=== PATIENT | female | born 1930 | race Caucasian/White ===

== ENCOUNTER → 2017-05-06 | Outpatient (CLI) | payer OTHER ==
[~2017-05-06] MED LIST: ALBU90OI INH; AMIT10 PO; ATEN25 PO; Advil100 MG PO; BENZ100A PO; CALCA500CH PO; CALCIUM 1,0001 EACH PO; CHOL10002 PO; CYAN1000 PO; DRONEDARONE PO; FENO54; FISH OIL 1,0001 EAC1 PO; HYDMOR4 PO; Hair, Skin & N1 EACH PO; IBUP400 PO; LAVAP17G PO; LEVFLO500 PO; LEVSOD100 PO; LEVSOD125; LEVSOD88 PO; LIDO5TP TOP; METO10 PO; Mucinex600 MG PO; NAPR500EC PO; Norco 5-325 Ta1 EACH PO; OMEG1CAP30 PO; Omeprazole20 M1 PO; PROC10 PO; PROM25S PR; PSEU120ER PO; Tasprin325 MG PO; VITAMIN D32000 UNIT PO; VITAMINS; Voltaren100 GM TP; Zofran Odt4 MG SL
[2017-05-06 10:38] LABS: Source, Urine Clean Catch
[2017-05-06 11:58] LABS: Bilirubin, Urine Neg (Neg); Blood, Urine Neg (Neg); Glucose Qualitative, Urine Neg (Neg); Ketones, Urine Neg (Neg); Leukocyte Esterase, Urine Neg (Neg); Nitrite, Urine Neg (Neg); Protein, Urine Neg (Neg); Urobilinogen, Urine NORM (Normal)
[2017-05-06 12:09] LABS: Appearance, Urine Clear (Clear); Color, Urine Yellow (P-Yellow)
== END | disposition home or self-care (01) ==
LOC: LAB 10:35 → LAB FUT 10:35 → EDSTATUS 04-26 15:25 → LAB FUT 04-26 15:25
PROVIDERS: Internal Medicine
DX: N39.0 Urinary tract infection, site not specified (principal)
CPT/HCPCS: 81003

== ENCOUNTER 2017-05-18 04:43 | Emergency (ER) | payer OTHER ==
[~2017-05-18] VITALS: Ht 154.9 cm; Wt 51.3 kg
[~2017-05-18 04:43] MED LIST changes: -Advil100 MG PO; -CHOL10002 PO; -FISH OIL 1,0001 EAC1 PO; -Hair, Skin & N1 EACH PO; -VITAMINS
[2017-05-18] MEDS ORDERED: VITAMINS (05:05)
[2017-07-14] MEDS ORDERED: Norco 5-325 Ta1 EACH PO (17:39)
== END 2017-05-18 07:05 | disposition home or self-care (01) ==
LOC: ER 04:43
DX: J06.9 Acute upper respiratory infection, unspecified (principal); Z88.5 Allergy status to narcotic agent; Z88.8 Allergy status to other drugs, medicaments and biological substances; Z79.82 Long term (current) use of aspirin; Z79.899 Other long term (current) drug therapy; E03.9 Hypothyroidism, unspecified; I48.91 Unspecified atrial fibrillation; Z87.891 Personal history of nicotine dependence
CPT/HCPCS: 71046; 94640; 99283

== ENCOUNTER 2017-05-21 18:38 | Emergency (ER) | payer OTHER ==
[~2017-05-21] VITALS: Ht 152.4 cm; Wt 50.4 kg
[~2017-05-21 18:38] MED LIST changes: +VITAMINS
[2017-05-21] MEDS ORDERED: Hair, Skin & N1 EACH PO (18:56)
[2017-05-21] MEDS ORDERED: CHOL10002 PO (18:56)
[2017-05-21] MEDS ORDERED: FISH OIL 1,0001 EAC1 PO (18:56)
[2017-05-21] MEDS ORDERED: Advil100 MG PO (18:57)
[2017-07-14] MEDS ORDERED: Norco 5-325 Ta1 EACH PO (17:39)
== END 2017-05-21 19:28 | disposition home or self-care (01) ==
LOC: ER 18:38
DX: S00.83XA Contusion of other part of head, initial encounter (principal); E03.9 Hypothyroidism, unspecified; I48.91 Unspecified atrial fibrillation; Z88.5 Allergy status to narcotic agent; Z91.09 Other allergy status, other than to drugs and biological substances; Z79.899 Other long term (current) drug therapy; Z87.891 Personal history of nicotine dependence; W01.0XXA Fall on same level from slipping, tripping and stumbling without subsequent striking against object, initial encounter
CPT/HCPCS: 99282

== ENCOUNTER 2018-04-06 17:01 | Emergency (ER) | payer OTHER ==
[~2018-04-06] VITALS: Ht 152.4 cm; Wt 49.9 kg
[~2018-04-06 17:01] MED LIST changes: +Advil100 MG PO; +CHOL10002 PO; +FISH OIL 1,0001 EAC1 PO; +Hair, Skin & N1 EACH PO
[2018-04-06 18:34] LABS: BASOPHILS ABSOLUTE AUTO 0.06 K/mm3 (0.00-0.23); BASOPHILS PERCENT AUTO 1 % (0-2); EOSINOPHILS PERCENT AUTO 2 % (0-6); Hematocrit 41.5 % (33.0-51.0); Hemoglobin 13.8 g/dL (11.5-16.0); IMMATURE GRAN ABSOLUTE AUTO 0.03 K/mm3 (0.00-0.10); IMMATURE GRAN PERCENT AUTO 0 % (0-1); LYMPHOCYTES ABSOLUTE AUTO 1.48 K/mm3 (0.84-5.20); LYMPHOCYTES PERCENT AUTO 16 % (21-46); MONOCYTES ABSOLUTE AUTO 0.77 K/mm3 (0.16-1.47); MONOCYTES PERCENT AUTO 9 % (4-13); Mean Corpuscular HGB 30.3 pg (26.0-34.0); Mean Corpuscular HGB Conc 33.3 g/dL (31.5-36.5); Mean Corpuscular Volume 91 fL (80-100); Mean Platelet Volume 8.7 fL (9.1-12.4); NEUTROPHILS ABSOLUTE AUTO 6.53 K/mm3 (1.96-9.15); NEUTROPHILS PERCENT AUTO 72 % (41-73); Platelet Count 300 K/mm3 (150-400); RDW Coefficient Variation 13.2 % (11.7-14.2); RDW Standard Deviation 44.7 fL (35.1-46.3); Red Blood Cell Count 4.55 M/mm3 (3.80-5.20); White Blood Cell Count 9.07 K/mm3 (4.00-11.30)
[2018-04-06 18:42] LABS: Source, Urine Clean Catch
[2018-04-06 18:44] LABS: Bilirubin, Urine Neg (Neg); Blood, Urine Neg (Neg); Glucose Qualitative, Urine Neg (Neg); Ketones, Urine Neg (Neg); Leukocyte Esterase, Urine 1+ (Neg); Nitrite, Urine Neg (Neg); Protein, Urine 1+ (Neg); Urobilinogen, Urine NORM (Normal)
[2018-04-06 18:52] LABS: Appearance, Urine Hazy (Clear); Color, Urine Yellow (P-Yellow)
[2018-04-06 18:54] LABS: Bacteria Rare /hpf; Mucus Light (0-Heavy); Red Blood Cells, Urine Rare /hpf (0-2); Squamous Epithelial Cells Few /hpf (Few); White Blood Cells, Urine 0-2 /hpf (0-5)
[2018-04-06 19:19] LABS: Alanine Aminotransfer (ALT/SGP 13 U/L (12-78); Albumin, Blood 3.3 g/dL (3.4-5.0); Albumin/Globulin Ratio 0.9 (0.8-1.8); Alk Phos 101 U/L (50-136); Anion Gap 8 mmol/L (6-16); Aspartate Aminotrans (AST/SGOT 22 U/L (12-37); Bilirubin, Total 0.2 mg/dL (0.1-1.0); Blood Urea Nitrogen 11 mg/dL (8-24); Bun/Creatinine Ratio 17.8 (12.0-20.0); CO2, Blood 25 mmol/L (21-32); Calcium, Blood 8.6 mg/dL (8.5-10.1); Chloride, Blood 109 mmol/L (98-108); Creatinine, Blood 0.62 mg/dL (0.40-1.00); Globulin, Blood 3.7 g/dL (2.2-4.0); Glomerular Filtration Rate >60 (60-); Glucose, Blood 98 mg/dL (70-99); Potassium, Blood 3.7 mmol/L (3.5-5.5); Sodium, Blood 142 mmol/L (136-145)
[2018-04-06] MEDS ORDERED: CYAN500 (19:59)
[2018-04-06] MEDS ORDERED: Cyclobenzaprine5 MG PO (21:36)
[2018-04-06] MEDS ORDERED: IBUP400 PO (21:36)
== END 2018-04-06 22:14 | disposition home or self-care (01) ==
LOC: ER 17:01
PROVIDERS: Emergency Medicine
DX: S22.089A Unspecified fracture of T11-T12 vertebra, initial encounter for closed fracture (principal); M51.34 Other intervertebral disc degeneration, thoracic region; X58.XXXA Exposure to other specified factors, initial encounter; Z88.5 Allergy status to narcotic agent; Z88.8 Allergy status to other drugs, medicaments and biological substances; Z79.899 Other long term (current) drug therapy; E03.9 Hypothyroidism, unspecified; I48.91 Unspecified atrial fibrillation; Z87.891 Personal history of nicotine dependence
CPT/HCPCS: 36415; 72070; 80053; 81001; 83690; 85025; 87077; 87086; 87147; 87186; 93005; 93010; 96374; 99284-25; J1885

== ENCOUNTER 2018-04-13 14:34 | Emergency (ER) | payer OTHER ==
[~2018-04-13] VITALS: Ht 152.4 cm; Wt 49.9 kg
[~2018-04-13 14:34] MED LIST changes: +CYAN500; +Cyclobenzaprine5 MG PO
[2018-04-13] MEDS ORDERED: GABA100 PO (14:53)
[2018-04-13] MEDS ORDERED: AMPI500 PO (15:42)
== END 2018-04-13 15:52 | disposition home or self-care (01) ==
LOC: ER 14:34
DX: N39.0 Urinary tract infection, site not specified (principal); R11.0 Nausea; T36.1X5A Adverse effect of cephalosporins and other beta-lactam antibiotics, initial encounter; E03.9 Hypothyroidism, unspecified; I48.91 Unspecified atrial fibrillation; Z87.891 Personal history of nicotine dependence; Z88.5 Allergy status to narcotic agent; Z79.899 Other long term (current) drug therapy
CPT/HCPCS: 99281-25

== ENCOUNTER → 2018-10-04 | Outpatient (CLI) | payer OTHER ==
[~2018-10-04] MED LIST changes: +AMPI500 PO; +Aspirin325 MG PO; +GABA100 PO; +HYDR1TAB94 PO; +KRILL OIL500 MG PO; -LEVSOD88 PO; +MIRALAX17 GM PO; +MIRT15 PO; +Synthroid88 MCG PO; +THERA1 EACH PO
== END | disposition home or self-care (01) ==
LOC: LAB 10:29 → LAB SHORT 10:29 → LAB FUT 10-03 14:35 → EDSTATUS 10-03 14:35
DX: R19.7 Diarrhea, unspecified (principal)
CPT/HCPCS: 87493

== ENCOUNTER 2018-10-12 05:06 | Emergency (ER) | payer OTHER ==
[~2018-10-12] VITALS: Ht 152.4 cm; Wt 47.6 kg
[~2018-10-12 05:06] MED LIST changes: -Aspirin325 MG PO; -HYDR1TAB94 PO; -KRILL OIL500 MG PO; -MIRALAX17 GM PO; -MIRT15 PO; -THERA1 EACH PO
[2018-10-12] MEDS ORDERED: KRILL OIL500 MG PO (05:54)
[2018-10-12 06:21] LABS: BASOPHILS ABSOLUTE AUTO 0.06 K/mm3 (0.00-0.23); BASOPHILS PERCENT AUTO 1 % (0-2); EOSINOPHILS ABSOLUTE AUTO 0.36 K/mm3 (0.00-0.68); EOSINOPHILS PERCENT AUTO 5 % (0-6); Hematocrit 40.3 % (33.0-51.0); Hemoglobin 13.1 g/dL (11.5-16.0); IMMATURE GRAN ABSOLUTE AUTO 0.03 K/mm3 (0.00-0.10); IMMATURE GRAN PERCENT AUTO 0 % (0-1); LYMPHOCYTES ABSOLUTE AUTO 1.24 K/mm3 (0.84-5.20); LYMPHOCYTES PERCENT AUTO 16 % (21-46); MONOCYTES ABSOLUTE AUTO 0.68 K/mm3 (0.16-1.47); MONOCYTES PERCENT AUTO 9 % (4-13); Mean Corpuscular HGB 29.7 pg (26.0-34.0); Mean Corpuscular HGB Conc 32.5 g/dL (31.5-36.5); Mean Corpuscular Volume 91 fL (80-100); Mean Platelet Volume 8.8 fL (9.1-12.4); NEUTROPHILS ABSOLUTE AUTO 5.26 K/mm3 (1.96-9.15); NEUTROPHILS PERCENT AUTO 69 % (41-73); Platelet Count 316 K/mm3 (150-400); RDW Coefficient Variation 13.2 % (11.7-14.2); RDW Standard Deviation 44.7 fL (35.1-46.3); Red Blood Cell Count 4.41 M/mm3 (3.80-5.20); White Blood Cell Count 7.63 K/mm3 (4.00-11.30)
[2018-10-12 06:38] LABS: Alanine Aminotransfer (ALT/SGP 12 U/L (12-78); Albumin, Blood 3.2 g/dL (3.4-5.0); Albumin/Globulin Ratio 0.9 (0.8-1.8); Alk Phos 107 U/L (50-136); Anion Gap 5 mmol/L (6-16); Aspartate Aminotrans (AST/SGOT 19 U/L (12-37); Bilirubin, Total 0.4 mg/dL (0.1-1.0); Blood Urea Nitrogen 13 mg/dL (8-24); CO2, Blood 28 mmol/L (21-32); Calcium, Blood 8.8 mg/dL (8.5-10.1); Chloride, Blood 110 mmol/L (98-108); Creatinine, Blood 0.69 mg/dL (0.40-1.00); Globulin, Blood 3.5 g/dL (2.2-4.0); Glomerular Filtration Rate >60 (60-); Glucose, Blood 90 mg/dL (70-99); Potassium, Blood 3.9 mmol/L (3.5-5.5); Sodium, Blood 143 mmol/L (136-145); Total Protein, Blood 6.7 g/dL (6.4-8.2)
== END 2018-10-12 09:02 | disposition home or self-care (01) ==
LOC: ER 05:06
PROVIDERS: Emergency Medicine
DX: R13.10 Dysphagia, unspecified (principal); E03.9 Hypothyroidism, unspecified; I48.91 Unspecified atrial fibrillation; Z87.891 Personal history of nicotine dependence
CPT/HCPCS: 71045; 80053; 83880; 84484; 85025; 93005; 93010; 99283-25

== ENCOUNTER 2018-11-19 19:44 | Observation (INO) | payer OTHER ==
[~2018-11-19] VITALS: Ht 165.1 cm; Wt 50.0 kg
[~2018-11-19 19:44] MED LIST changes: +KRILL OIL500 MG PO
[2018-11-19 22:36] LABS: BASOPHILS ABSOLUTE AUTO 0.04 K/mm3 (0.00-0.23); BASOPHILS PERCENT AUTO 0 % (0-2); EOSINOPHILS ABSOLUTE AUTO 0.12 K/mm3 (0.00-0.68); EOSINOPHILS PERCENT AUTO 1 % (0-6); Hemoglobin 12.7 g/dL (11.5-16.0); IMMATURE GRAN ABSOLUTE AUTO 0.03 K/mm3 (0.00-0.10); IMMATURE GRAN PERCENT AUTO 0 % (0-1); LYMPHOCYTES ABSOLUTE AUTO 1.33 K/mm3 (0.84-5.20); LYMPHOCYTES PERCENT AUTO 11 % (21-46); MONOCYTES PERCENT AUTO 8 % (4-13); Mean Corpuscular HGB 29.4 pg (26.0-34.0); Mean Corpuscular HGB Conc 32.6 g/dL (31.5-36.5); Mean Corpuscular Volume 90 fL (80-100); Mean Platelet Volume 9.1 fL (9.1-12.4); NEUTROPHILS ABSOLUTE AUTO 9.72 K/mm3 (1.96-9.15); NEUTROPHILS PERCENT AUTO 79 % (41-73); Platelet Count 234 K/mm3 (150-400); RDW Coefficient Variation 13.9 % (11.7-14.2); RDW Standard Deviation 46.3 fL (35.1-46.3); Red Blood Cell Count 4.32 M/mm3 (3.80-5.20); White Blood Cell Count 12.24 K/mm3 (4.00-11.30)
[2018-11-19 22:51] LABS: Anion Gap 9 mmol/L (6-16); Blood Urea Nitrogen 22 mg/dL (8-24); Bun/Creatinine Ratio 41.7 (12.0-20.0); CO2, Blood 25 mmol/L (21-32); Calcium, Blood 8.5 mg/dL (8.5-10.1); Chloride, Blood 110 mmol/L (98-108); Creatinine, Blood 0.53 mg/dL (0.40-1.00); Glomerular Filtration Rate >60 (60-); Glucose, Blood 106 mg/dL (70-99); Potassium, Blood 3.5 mmol/L (3.5-5.5); Sodium, Blood 144 mmol/L (136-145)
--- NOTE | 2018-11-20 07:38 | NUR ---
SHIFT SUMMARY PT NEW ADMIT THIS AM. AAOX4/HUALAPAI. DISCOMFORT TO RIGHT HIP CONTROLLED WITH 1 PAIN PILL. NO NAUSEA/EMESIS. BRUSING NOTED OVER RIGHT HIP. REPOSITIONS WITH MODERATE ASSISTANCE IN BED. DNR BAND EXPLAINED + PLACED TO LUE. AT BEDSIDE, LOVING + ATTENTIVE. PT ORIENTED TO ROOM + CALL LIGHT USE, BED ALARM ON FOR SAFETY. PT RESTING AT THIS TIME WITH AT BEDSIDE, ASYA. REPORT TO DAY SHIFT RN.
[2018-11-20 08:31] LABS: BASOPHILS ABSOLUTE AUTO 0.03 K/mm3 (0.00-0.23); BASOPHILS PERCENT AUTO 1 % (0-2); EOSINOPHILS ABSOLUTE AUTO 0.21 K/mm3 (0.00-0.68); EOSINOPHILS PERCENT AUTO 4 % (0-6); Hematocrit 35.5 % (33.0-51.0); Hemoglobin 11.8 g/dL (11.5-16.0); IMMATURE GRAN ABSOLUTE AUTO 0.01 K/mm3 (0.00-0.10); IMMATURE GRAN PERCENT AUTO 0 % (0-1); LYMPHOCYTES ABSOLUTE AUTO 1.07 K/mm3 (0.84-5.20); LYMPHOCYTES PERCENT AUTO 18 % (21-46); MONOCYTES ABSOLUTE AUTO 0.72 K/mm3 (0.16-1.47); MONOCYTES PERCENT AUTO 12 % (4-13); Mean Corpuscular HGB 29.8 pg (26.0-34.0); Mean Corpuscular HGB Conc 33.2 g/dL (31.5-36.5); Mean Corpuscular Volume 90 fL (80-100); Mean Platelet Volume 9.2 fL (9.1-12.4); NEUTROPHILS ABSOLUTE AUTO 3.98 K/mm3 (1.96-9.15); NEUTROPHILS PERCENT AUTO 66 % (41-73); Platelet Count 196 K/mm3 (150-400); RDW Standard Deviation 45.6 fL (35.1-46.3); Red Blood Cell Count 3.96 M/mm3 (3.80-5.20); White Blood Cell Count 6.02 K/mm3 (4.00-11.30)
[2018-11-20 08:47] LABS: Albumin, Blood 2.8 g/dL (3.4-5.0); Anion Gap 5 mmol/L (6-16); Blood Urea Nitrogen 14 mg/dL (8-24); Bun/Creatinine Ratio 31.4 (12.0-20.0); CO2, Blood 29 mmol/L (21-32); Chloride, Blood 108 mmol/L (98-108); Creatinine, Blood 0.45 mg/dL (0.40-1.00); Glomerular Filtration Rate >60 (60-); Glucose, Blood 88 mg/dL (70-99); Phosphorus, Blood 2.6 mg/dL (2.5-4.9); Potassium, Blood 3.4 mmol/L (3.5-5.5); Sodium, Blood 142 mmol/L (136-145)
[2018-11-20] MEDS ORDERED: MIRT15 PO (08:50)
[2018-11-20 10:51] LABS: Source, Urine Clean Catch
[2018-11-20 10:57] LABS: Bilirubin, Urine Neg (Neg); Blood, Urine Neg (Neg); Glucose Qualitative, Urine Neg (Neg); Ketones, Urine Neg (Neg); Leukocyte Esterase, Urine 1+ (Neg); Nitrite, Urine Neg (Neg); Protein, Urine Neg (Neg); Specific Gravity, Urine 1.015 (1.003-1.022); Urobilinogen, Urine NORM (Normal)
[2018-11-20 11:05] LABS: Appearance, Urine Clear (Clear); Color, Urine Yellow (P-Yellow)
[2018-11-20 11:08] LABS: Bacteria Rare /hpf; Red Blood Cells, Urine 0-2 /hpf (0-2); Squamous Epithelial Cells Few /hpf (Few)
--- NOTE | 2018-11-20 17:11 | NUR ---
SUMMARY WAS IN TODAY AND INFORMED THE PT THAT SHE WILL NOT BE A SURGICAL CANDIDATE. SHE WILL BE TOE TOUCH WEIGHT BEARING WITH FWW. PHYSICAL THERAPY IS RECOMMENDING SNF AT THIS TIME. THE PT WAS STARTED ON A REGULAR DIET. PAIN IS MANAGED WITH 1 NORCO. TOLERATING PO INTAKE. VSS. CALL LIGHT IN REACH, BED ALARM IS ON FOR SEFETY.
--- NOTE | 2018-11-21 08:02 | NUR ---
SUMMARY PT INTERMITTENTLY FORGETFUL OF ENVIRONMENT TONIGHT. REASSURED. PT WITH HX URINARY RETENTION. VOID PRIOR IN SHIFT WAS 200 ML.WITH NO FURTHER VOID. I BLADDER SCANNED FOR 614 ML PT DENIED URGE TO VOID. EXPLAINED RISKS TO PT. OOB WITH SBA ,GAITBELT,FWW. PT ADAMANT SHE WANTED TO GET OOB WITHOUT ASSIST. PT WEAK ANDVERY SLOW MOVING BUT WAS ABLE TO GET TO BSC WITH LITTLWE HELP. NEEDED REMINDING OF TTWB R.PT VOIDED ONLY 100 ML, BUT REFUSED IN/OUT CATH. I DISCUSSED RISKS OF REFUSING CATH AND IMPORTANCE OF TRYING TO KEEP BLADDER EMPTY POSSIBLE TO HAVE POTENTIAL RETURN OF BLADDER TONE. PT CONT TO REFUSE. BED ALARM ON FOR SAFETY.PT BACK TO SLEEP AT SHIFT CHANGE
[2018-11-21] MEDS ORDERED: Aspirin325 MG PO (16:17)
[2018-11-21] MEDS ORDERED: HYDR1TAB94 PO (16:17)
[2018-11-21] MEDS ORDERED: THERA1 EACH PO (16:18)
[2018-11-21] MEDS ORDERED: MIRALAX17 GM PO (16:18)
--- NOTE | 2018-11-21 17:46 | NUR ---
DISCHARGE: DISCHARGE PACKET PRINTED AND EDUCATION GIVEN. DR. RAYO NOTIFIED OF PT BLADDER SCAN OF 374ML, PT HAS HAD EASIER BLADDER EMPTYING THE DAY HAS GONE ON WITH DECREASING AMOUNT IN BLADDER SCANS. PER DR. RAYO PT IS SEEING A UROLOGIST, WILL ASK PT TO SCHEDULE AN APPOINTMENT. PT BROUGHT FWW FROM HOME. PT SENT HOME WITH SCRIPTS. PT LEFT UNIT AT ABOUT 1740 VIA WHEEL CHAIR WITH THIS RN AND .
== END 2018-11-21 17:33 | disposition home or self-care (01) ==
LOC: ER 19:44 → SURS 19:45 → ER 22:31 → SURS 11-20 00:12
PROVIDERS: Emergency Medicine; Internal Medicine; ADMIT Family Medicine
DX: S72.114A Nondisplaced fracture of greater trochanter of right femur, initial encounter for closed fracture (principal); D72.829 Elevated white blood cell count, unspecified; I48.0 Paroxysmal atrial fibrillation; G62.0 Drug-induced polyneuropathy; T45.1X5A Adverse effect of antineoplastic and immunosuppressive drugs, initial encounter; C85.90 Non-Hodgkin lymphoma, unspecified, unspecified site; R42 Dizziness and giddiness; R33.9 Retention of urine, unspecified; F32.9 Major depressive disorder, single episode, unspecified; E03.9 Hypothyroidism, unspecified; Z88.5 Allergy status to narcotic agent; Z91.09 Other allergy status, other than to drugs and biological substances; Z88.8 Allergy status to other drugs, medicaments and biological substances; Z79.899 Other long term (current) drug therapy; Z87.891 Personal history of nicotine dependence; W19.XXXA Unspecified fall, initial encounter
CPT/HCPCS: 36415; 73502; 73700; 80048; 80069; 81001; 85025; 87077; 87081; 87086; 96372; 96374; 97116; 97161; 97166; 97530; 97535; 99285-25; A9270-GY; G0378; J1650; J3010

== ENCOUNTER 2019-04-02 10:55 | Emergency (ER) | payer OTHER ==
[~2019-04-02] VITALS: Ht 152.4 cm; Wt 43.1 kg
[~2019-04-02 10:55] MED LIST changes: +Aspirin325 MG PO; +HYDR1TAB94 PO; +MIRALAX17 GM PO; +MIRT15 PO; +THERA1 EACH PO
== END 2019-04-02 12:35 | disposition home or self-care (01) ==
LOC: ER 10:55
DX: S32.591A Other specified fracture of right pubis, initial encounter for closed fracture (principal); Z88.1 Allergy status to other antibiotic agents; Z91.09 Other allergy status, other than to drugs and biological substances; Z79.82 Long term (current) use of aspirin; Z79.899 Other long term (current) drug therapy; I48.91 Unspecified atrial fibrillation; E03.9 Hypothyroidism, unspecified; Z87.891 Personal history of nicotine dependence; W19.XXXA Unspecified fall, initial encounter
CPT/HCPCS: 73502; 99283-25

== ENCOUNTER 2019-10-17 03:01 | Emergency (ER) | payer OTHER ==
[~2019-10-17] VITALS: Ht 154.9 cm; Wt 46.7 kg
[~2019-10-17 03:01] MED LIST changes: +ACET500 PO; +BISA10S PR; +CITRACEL; +Calcium Ascorb500 MG PO; +EUTHYROX88 MCG PO; +LEVO-T88 MCG PO; +LORA.5 PO; +QUET25 PO; +SERT100 PO; +Seroquel Xr50 MG PO; +[UNRECOGNIZED DRUG - OTHER]
[2019-10-17] MEDS ORDERED: SEROQUEL25 MG PO (03:14)
[2019-10-17] MEDS ORDERED: IBUP400 PO (03:21)
[2019-10-17] MEDS ORDERED: LORA.5 PO (03:23)
== END 2019-10-17 05:40 | disposition home or self-care (01) ==
LOC: ER 03:01
DX: S51.812A Laceration without foreign body of left forearm, initial encounter (principal); Z91.040 Latex allergy status; Z91.09 Other allergy status, other than to drugs and biological substances; Z88.1 Allergy status to other antibiotic agents; Z79.82 Long term (current) use of aspirin; Z79.899 Other long term (current) drug therapy; I48.91 Unspecified atrial fibrillation; E03.9 Hypothyroidism, unspecified; Z87.891 Personal history of nicotine dependence; W06.XXXA Fall from bed, initial encounter
CPT/HCPCS: 73070; 73090; 73110; 99283-25